=== PATIENT | male | born 1955 | race Caucasian/White ===

== ENCOUNTER → 2016-12-09 | Outpatient (CLI) | payer OTHER ==
[~2016-12-09] MED LIST: REGADENOSON 0.4 MG/5 ML DISP.SYRIN. IV ONE
--- NOTE | 2016-12-09 16:55 | PCVCIMAG ---
APPROVED REPORT Exam: Nuclear Stress Test Indication: CAD Patient Location: Out Patient Stress Nurse: Pattie Sears RN, DAE Alicia Tech:Stefano Peralta NMTCB Ht: 5 ft 11 in Wt: 240 lbs BSA: 2.28 m2 HR: 68 bpm BP: 134/81 mmHg BMI: 33.4 Rhythm: NSR, Non Specific T Wave Medical History Medical History: Age, HTN, CAD, Medications: Zetia, Metoprolol, Tamsulosin, Losartan Allergies: NKDA Previous Cardiac Procedures: CABG 2006 Pretest Chest Pain Characteristics: No chest pain Exercise History: Physically active Meds Held (24 hrs): Metoprolol NM EXAM: Myocardial Perfusion REST/STRESS Imaging Protocol: Rest Tc-99m/Stress Tc-99m 1 day Resting Data Rest SPECT myocardial perfusion imaging was performed in supine position 45 minutes following the intravenous injection of 15.1 mCi of Tc-99m Sestamibi. Time of rest injection: 929 Date: 12/09/2016 Pharmacologic Stress Pharmacologic stress test was performed by injecting Regadenoson 0.4 mg IV push followed by the intravenous injection of 45.2 mCi of Tc-99m Sestamibi. Time of stress injection: 1050 Date: 12/09/2016 The images were gated to evaluate regional wall motion and calculate left ventricular ejection fraction. Study Quality Study: Good Study Data Post stress, the left ventricular ejection was 52%.. SSS: 3 SRS: 1 SDS: 2 TID = 1.07. Perfusion Medium sized area of mild reversible ischemia involving the mid inferolateral left ventricle consistent with a circumflex distribution. Wall Motion Normal left ventricular size and function with no regional wall motion abnormalities. Nuclear Conclusion Medium sized area of mild reversible ischemia involving the mid inferolateral left ventricle consistent with a circumflex distribution have developed since December 2015. Normal left ventricular size and function with no regional wall motion abnormalities. Interpreted by: Donovan Gibson MD Electronically Approved: 12/09/2016 12:38:17 Stress Test Details Stress Test: Pharmacologic stress was paired with low level exercise. Reason for pharmacologic stress test: physical limitation. HR Resting HR: 68 bpmMax Heart Rate (APMHR): 159 bpm Max HR Achieved: 117 bpmTarget HR (85% APMHR): 135 bpm % of APMHR: 73 Recovery HR: 80 bpm BP Resting BP: 134/81 mmHg Max BP: 138/72 mmHg ECG Resting ECG: Sinus Rhythm, nonspecific T wave abnormalities Stress ECG: Sinus Rhythm, nonspecific T wave abnormalities Recovery ECG: Sinus Rhythm, nonspecific T wave abnormalities Clinical Reason for Termination: Completed protocol Stress Symptoms: Dyspnea, Leg Fatigue Exercise duration: 4 min sec Exercise capacity: 1.6 METs Symptoms resolved during recovery. Stress ECG Conclusion ECG: Non-ischemic <Conclusion> ECG: Non-ischemic
== END | disposition home or self-care (01) ==
LOC: PCVCIMAG 09:05
PROVIDERS: ATTEND Internal Medicine Cardiovascular Disease
DX: I25.10 Atherosclerotic heart disease of native coronary artery without angina pectoris (principal); I10 Essential (primary) hypertension; K52.9 Noninfective gastroenteritis and colitis, unspecified; E78.00 Pure hypercholesterolemia, unspecified; Z95.1 Presence of aortocoronary bypass graft
CPT/HCPCS: 36415; 78452; 93017; A9500; J2785

== ENCOUNTER → 2016-12-14 | Outpatient (CLI) | payer OTHER | END | disposition home or self-care (01) | LOC: PCVCIMAG 10:46 | PROVIDERS: ATTEND Internal Medicine Cardiovascular Disease | DX: I65.23 Occlusion and stenosis of bilateral carotid arteries (principal); I25.10 Atherosclerotic heart disease of native coronary artery without angina pectoris; I10 Essential (primary) hypertension; E78.00 Pure hypercholesterolemia, unspecified; Z95.1 Presence of aortocoronary bypass graft; Z87.891 Personal history of nicotine dependence | CPT/HCPCS: 93880; G0463 ==

== ENCOUNTER → 2017-10-07 | Outpatient (CLI) | payer OTHER ==
[~2017-10-07] MED LIST changes: +REGADENOSON 0.4 MG/5 ML DISP.SYRIN. IV; -REGADENOSON 0.4 MG/5 ML DISP.SYRIN. IV ONE
== END | disposition home or self-care (01) ==
LOC: PCVCIMAG 08:00
DX: I25.10 Atherosclerotic heart disease of native coronary artery without angina pectoris (principal); I27.20 Pulmonary hypertension, unspecified; E78.5 Hyperlipidemia, unspecified; E66.9 Obesity, unspecified; Z68.34 Body mass index [BMI] 34.0-34.9, adult; Z87.891 Personal history of nicotine dependence; Z95.1 Presence of aortocoronary bypass graft
CPT/HCPCS: 78452; 93017; 93306; A9500; J2785

== ENCOUNTER → 2017-12-20 | Outpatient (CLI) | payer OTHER ==
--- NOTE | 2017-12-20 14:42 | PCVCIMAG ---
APPROVED REPORT Study performed: 12/20/2017 13:32:09 Exam: Stress Echocardiogram Indication: CAD s/p CABG Patient Location: Echo lab Stress Nurse: Meche Álvarez RN Room #: 1 Status: routine Ht: 5 ft 11 in HR: 92 bpm BP: 128/80 mmHg Rhythm: NSR Medical History Medical History: CAD s/p CABG, HTN, Hyperlipidemia Medications: Metoprolol Cardiac Risk Factors: Hyperlipidemia, HTN Previous Cardiac Procedures: CABG Pretest Chest Pain Characteristics: No chest pain Exercise History: Physically active Procedure The patient underwent an Exercise Stress Test using the Darryn Protocol. Blood pressure, heart rate, and EKG were monitored. An Echocardiogram was performed by cryptologic technician technical in four stages in quad fashion. At peak stress, four selected images were obtained and placed side by side with resting images for comparison. Stress Test Details Stress Test: Exercise stress testing was performed using a Darryn protocol. HR Resting HR: 92 bpmMax Heart Rate (APMHR): 158 bpm Max HR Achieved: 184 bpmTarget HR (85% APMHR): 134 bpm % of APMHR: 116 Recovery HR: 109 bpm HR response to stress: Normal HR response to stress BP Resting BP: 128/80 mmHg Max BP: 178/78 mmHg Recovery BP: 130/84 mmHg ECG Resting ECG: Sinus Rhythm, nonspecific ST-T abnormalities Stress ECG: Sinus Rhythm, nonspecific ST-T abnormalities ST Change: Non-ischemic Arrhythmia: None Recovery ECG: Sinus Rhythm Recovery ST Change: Non-ischemic Recovery Arrhythmia: None Clinical Reason for Termination: Maximal effort Stress Symptoms: none Exercise duration: 9 min 45 sec Highest Stage Achieved: Stage 4: 4.2 mph at 16% grade. Exercise capacity: 12.8 METs Overall Exercise Capacity for Age: Good Scale: Active Angina Score: None No complications. Stress ECG Conclusion The patient exercised according to the DARRYN protocol for 9:45 mins; achieving a work level of 12.8 METS. The resting heart rate of 92 bpm michelle to a maximum heart rate of 184 bpm. This value represen t116 % of the maximal, age-predicted heart rate. The resting blood pressure of 128/80 mmHg, michelle to a maximum blood pressure of 178/78 mmHg. The exercise test was stopped due to fatigue . Pre-Stress Echo The resting Echocardiogram showed normal left ventricular contractility with an estimated Ejection Fraction of about 55-60%. Normal wall motion in all segments on baseline images. Post-Stress Echo The stress Echocardiogram showed normal left ventricular contractility with an estimated Ejection Fraction of about 65-70%. Normal augmentation of wall motion in all segments on post stress images. Clinical No clinical or ECG evidence for ischemia. Conclusion Clinical Response: Non-ischemic Exercise Capacity: Superior Stress ECG Response: Non-ischemic Stress Echo Images: Non-ischemic No clinical, EKG or echocardiographic evidence for ischemia. No echocardiographic evidence for exercise induced ischemia. Normal stress echocardiogram with maximal exercise stress. <Conclusion> No clinical, EKG or echocardiographic evidence for ischemia. No echocardiographic evidence for exercise induced ischemia. Normal stress echocardiogram with maximal exercise stress.
== END | disposition home or self-care (01) ==
LOC: PCVCIMAG 14:27
PROVIDERS: ATTEND Internal Medicine Cardiovascular Disease
DX: I25.10 Atherosclerotic heart disease of native coronary artery without angina pectoris (principal); I10 Essential (primary) hypertension; Z95.1 Presence of aortocoronary bypass graft
CPT/HCPCS: 93325; 93351

== ENCOUNTER → 2018-09-13 | Outpatient (CLI) | payer OTHER ==
--- NOTE | 2018-09-13 13:47 | PCVCIMAG ---
APPROVED REPORT Study performed: 09/13/2018 11:29:20 Exam: Stress Echocardiogram Indication: CAD s/p CABG, Hypertension, Hyperlipidemia Patient Location: Echo lab Stress Nurse: Meche Álvarez RN Status: routine Ht: 5 ft 10 in HR: 79 bpm BP: 130/88 mmHg Medical History Medical History: CAD s/p CABG Procedure The patient underwent an Exercise Stress Test using the [place] Protocol. Blood pressure, heart rate, and EKG were monitored. An Echocardiogram was performed by county program technician in four stages in quad fashion. At peak stress, four selected images were obtained and placed side by side with resting images for comparison. Stress Test Details Stress Test: Exercise stress testing was performed using a Poncho protocol. HR Resting HR: 79 bpmMax Heart Rate (APMHR): 158 bpm Max HR Achieved: 162 bpmTarget HR (85% APMHR): 134 bpm % of APMHR: 102 Recovery HR: 87 bpm HR response to stress: Normal HR response to stress BP Resting BP: 130/88 mmHg Max BP: 152/80 mmHg Recovery BP: 134/82 mmHg BP response to stress: Normal blood pressure response to stress. ECG Resting ECG: Sinus Rhythm Stress ECG: Sinus Rhythm Recovery ECG: Sinus Rhythm Clinical Reason for Termination: Maximal effort Exercise duration: 10 min 26 sec Highest Stage Achieved: Stage 4: 4.2 mph at 16% grade. Exercise capacity: 13.70 METs Overall Exercise Capacity for Age: Good Pre-Stress Echo The resting Echocardiogram showed normal left ventricular contractility with an estimated Ejection Fraction of about 55-60%. Normal wall motion in all segments on baseline images. Post-Stress Echo The stress Echocardiogram showed normal left ventricular contractility with an estimated Ejection Fraction of about 60-65%. Normal augmentation of wall motion in all segments on post stress images. Clinical No clinical or ECG evidence for ischemia. Conclusion Clinical Response: Non-ischemic Exercise Capacity: Average Stress ECG Response: Non-ischemic Stress Echo Images: Non-ischemic The left ventricle is normal in size and wall thickness in both the rest and stress images. Other Information Study Quality: Good <Conclusion> The left ventricle is normal in size and wall thickness in both the rest and stress images.
== END | disposition home or self-care (01) ==
LOC: PCVCIMAG 10:55
PROVIDERS: ATTEND Internal Medicine Cardiovascular Disease
DX: I25.10 Atherosclerotic heart disease of native coronary artery without angina pectoris (principal); I10 Essential (primary) hypertension; Z95.1 Presence of aortocoronary bypass graft
CPT/HCPCS: 93325; 93351